=== PATIENT | male | born 1970 | race Caucasian/White ===

== ENCOUNTER 2020-01-13 21:04 | Emergency (ER) | payer BC ==
[2020-01-13 21:16] VITALS: BP 145/88; PULSE 60; RESP 18; TEMP 98
[2020-01-13] MEDS ORDERED: SODIUM CHLORIDE 0.9% 1,000 ML IV STA (21:17)
[2020-01-13] MEDS ORDERED: SODIUM CHLORIDE 0.9% 500 ML 500 ML IV STA (21:17)
[2020-01-13 21:38] LABS: Basophils # (A) 0.1 k/uL (0-0.2); Basophils % (A) 1 %; Eosinophils # (A) 0.2 k/uL (0-0.7); Eosinophils % (A) 2 %; HCT 49.4 % (39.0-53.0); HGB 16.7 gm/dL (13.0-17.5); Lymphocytes # (A) 2.3 k/uL (1.0-4.8); Lymphocytes % (A) 28 %; MCH 30.9 pg (25.0-35.0); MCHC 33.8 g/dL (31.0-37.0); MCV 91.3 fL (80.0-100.0); Mean Platelet Volume 8.9; Monocytes # (A) 0.5 k/uL (0-1.0); Monocytes % (A) 6 %; Neutrophils # (A) 4.9 k/uL (1.3-7.7); Neutrophils % (A) 60 %; Platelet Count 185 k/uL (150-450); RBC 5.41 m/uL (4.30-5.90); WBC 8.2 k/uL (3.8-10.6)
[2020-01-13 21:47] LABS: Appearance,Urine Clear (Clear); Bilirubin,Urine Negative (Negative); Blood,Urine Negative (Negative); Color,Urine Yellow; Glucose,Urine (UA) Negative (Negative); Ketones,Urine Negative (Negative); Leukocyte Esterase,Urine Negative (Negative); Nitrite,Urine Negative (Negative); Protein,Urine Negative (Negative); Specific Gravity,Urine 1.025 (1.001-1.035); Urobilinogen,Urine <2.0 mg/dL (<2.0)
[2020-01-13 21:50] LABS: Potassium 4.4 mmol/L (3.5-5.1)
[2020-01-13 21:51] LABS: ALT 34 U/L (4-49); AST 42 U/L (17-59); African American GFR (CKD) >90 (>60 ml/min/1.73 sqM); Albumin 4.3 g/dL (3.5-5.0); Alkaline Phosphatase 92 U/L (38-126); Amylase 84 U/L (30-110); Anion Gap 7 mmol/L; Blood Urea Nitrogen 20 mg/dL (9-20); Calcium 9.5 mg/dL (8.4-10.2); Carbon Dioxide 24 mmol/L (22-30); Chloride 109 mmol/L (98-107); Glucose 92 mg/dL (74-99); Non-African American GFR(CKD) >90 (>60 ml/min/1.73 sqM); Sodium 140 mmol/L (137-145); Total Bilirubin 0.5 mg/dL (0.2-1.3); Total Protein 7.1 g/dL (6.3-8.2)
--- NOTE | 2020-01-13 22:09 | CT ---
EXAMINATION TYPE: CT abdomen pelvis w con DATE OF EXAM: 01/13/2020 COMPARISON: HISTORY: Abdominal pain CT DLP: 1152.2 mGycm Automated exposure control for dose reduction was used. CONTRAST: Performed with IV Contrast, patient injected with 100 mL of Isovue 300. Lung bases show minimal subsegmental atelectasis. There is no pleural effusion. Heart size is normal. There is no pericardial effusion. There is 3 cm mass in the posterior right lobe of the liver with delayed enhancement consistent with hemangioma. Spleen appears normal. Stomach is normal. There is no pancreatic mass. Gallbladder appear s normal. The bile ducts are nondilated. There is no adrenal mass. Kidneys show satisfactory contrast opacification. There is no hydronephrosi s. Delayed images show normal renal excretion. There is no retroperitoneal adenopathy. Appendix appea rs normal. Bladder distends smoothly. There is no inguinal hernia. There is no free fluid in the pelv is. There is no evidence of pelvic mass. There is no ascites. There is no mesenteric edema. There is no sign of bowel obstruction. Lumbar vertebra have normal alignment. Posterior elements are intact. There is no compression fractur e. The bony pelvis is intact. Hip joints are intact. IMPRESSION: Normal appendix. No sign of acute abdomen and pelvis.
--- NOTE | 2020-01-13 22:24 | ED ---
Abdominal Pain HPI - General Chief Complaint: Abdominal Pain Stated Complaint: Abd Pain Time Seen by Provider: 01/13/20 21:16 Source: patient Mode of arrival: ambulatory Limitations: no limitations - History of Present Illness Initial Comments: 49-year-old male presenting today for chief complaint of right lower quadrant abdominal pain he states it began this morning. He states he has noticed somewhat increased with lifting his child. Patient denies any fevers decreased appetite. He states he has had some loose stools. He denies any vomiting. Vic huerta denies knowing this previously. She states that he felt it was present yesterday at times occasional sharp. He states this still is occasionally states that there has been no constant pain. Patient states he is comfortable currently. Pain to palpation of the right lwoer abdomen/inguinal region. - Related Data Allergies Allergy/AdvReac Type Severity Reaction Status Date / Time No Known Allergies Allergy Verified 01/13/20 21:16 Review of Systems ROS Statement: Those systems with pertinent positive or pertinent negative responses have been documented in the HPI. ROS Other: All systems not noted in ROS Statement are negative. Past Medical History Past Medical History: No Reported History History of Any Multi-Drug Resistant Organisms: None Reported Past Surgical History: Orthopedic Surgery Additional Past Surgical History / Comment(s): Right miniscus repair Past Psychological History: No Psychological Hx Reported Smoking Status: Never smoker Past Alcohol Use History: None Reported Past Drug Use History: None Reported General Exam - General Exam Comments Initial Comments: General: The patient is awake and alert, in no distress Eye: +3 mm pupils are equal, round and reactive to light, extra-ocular movements are intact. No nystagmus. There is normal conjunctiva bilaterally. No signs of icterus. Ears, nose, mouth and throat: There are moist mucous membranes and no oral lesions. Neck: The neck is supple, there is no tenderness or JVD. Cardiovascular: There is a regular rate and rhythm. No murmur, rub or gallop is appreciated. Respiratory: Lungs are clear to auscultation, respirations are non-labored, breath sounds are equal. No wheezes, stridor, rales, or rhonchi. Gastrointestinal: Soft, non-distended, non-tender abdomen without masses or organomegaly noted. There is no rebound or guarding present. : normal testicular exam, no inguinal hernia appreciated. no pain with exam. Musculoskeletal: Normal ROM, no tenderness. Strength 5/5. Sensation intact. Radial pulses equal bilaterally 2+. Neurological: A&O x 3. CN II-XII intact grossly, There are no obvious motor or sensory deficits. Coordination appears grossly intact. Speech is normal. Skin: Skin is warm and dry and no rashes or lesions are noted. Psychiatric: Cooperative, appropriate mood & affect, normal judgment. Limitations: no limitations Course Vital Signs 01/13/20 21:12 Temperature 98.0 F Pulse Rate 60 Respiratory 18 Rate Blood Pressure 145/88 O2 Sat by Pulse 96 Oximetry Medical Decision Making - Medical Decision Making Or 9-year-old male presents for right lower quadrant pain CT negative for acute process laboratory studies stable. Urinalysis unremarkable. No kidney stones no signs of appendicitis. I do suspicion given patient's pain increases with lifting that there is possible small inguinal hernia. There is nonpalpable on physical examination. Patient has no constant pain no pain currently. This time feel he stated for discharge with outpatient general surgery follow-up return parameters were discussed the patient was discharged appearing well. Dr. Pal is agreeable to car eplan and discharge at this time. - Lab Data Result diagrams: 01/13/20 21:27 01/13/20 21:27 Lab Results 01/13/20 01/13/20 01/13/20 Range/Units 21:27 21:27 21:27 WBC 8.2 (3.8-10.6) k/uL RBC 5.41 (4.30-5.90) m/uL Hgb 16.7 (13.0-17.5) gm/dL Hct 49.4 (39.0-53.0) % MCV 91.3 (80.0-100.0) fL MCH 30.9 (25.0-35.0) pg MCHC 33.8 (31.0-37.0) g/dL RDW 13.0 (11.5-15.5) % Plt Count 185 (150-450) k/uL Neutrophils % 60 % Lymphocytes % 28 % Monocytes % 6 % Eosinophils % 2 % Basophils % 1 % Neutrophils # 4.9 (1.3-7.7) k/uL Lymphocytes # 2.3 (1.0-4.8) k/uL Monocytes # 0.5 (0-1.0) k/uL Eosinophils # 0.2 (0-0.7) k/uL Basophils # 0.1 (0-0.2) k/uL Sodium 140 (137-145) mmol/L Potassium 4.4 (3.5-5.1) mmol/L Chloride 109 H (98-107) mmol/L Carbon Dioxide 24 (22-30) mmol/L Anion Gap 7 mmol/L BUN 20 (9-20) mg/dL Creatinine 0.90 (0.66-1.25) mg/dL Est GFR (CKD-EPI)AfAm >90 (>60 ml/min/1.73 sqM) Est GFR (CKD-EPI)NonAf >90 (>60 ml/min/1.73 sqM) Glucose 92 (74-99) mg/dL Calcium 9.5 (8.4-10.2) mg/dL Total Bilirubin 0.5 (0.2-1.3) mg/dL AST 42 (17-59) U/L ALT 34 (4-49) U/L Alkaline Phosphatase 92 (38-126) U/L Total Protein 7.1 (6.3-8.2) g/dL Albumin 4.3 (3.5-5.0) g/dL Amylase 84 (30-110) U/L Lipase 114 (23-300) U/L Urine Color Yellow Urine Appearance Clear (Clear) Urine pH 6.0 (5.0-8.0) Ur Specific [place] 1.025 (1.001-1.035) Urine Protein Negative (Negative) Urine Glucose (UA) Negative (Negative) Urine Ketones Negative (Negative) Urine Blood Negative (Negative) Urine Nitrite Negative (Negative) Urine Bilirubin Negative (Negative) Urine Urobilinogen <2.0 (<2.0) mg/dL Ur Leukocyte Esterase Negative (Negative) Disposition Clinical Impression: RLQ abdominal pain Disposition: HOME SELF-CARE Condition: Good Instructions (If sedation given, give patient instructions): Inguinal Hernia (ED) Additional Instructions: Please use medication as discussed. Please follow-up with family doctor in the next 2 days, recommend general surgery consult. Please return to emergency room if the symptoms increase or worsen or for any other concerns. Is patient prescribed a controlled substance at d/c from ED?: No Referrals: Austin Mai MD [Primary Care Provider] - 1-2 days Walter Milligan MD [Medical Doctor] - 1-2 days Time of Disposition: 22:24
== END 2020-01-13 22:30 | disposition home or self-care (01) ==
LOC: EC 21:04
DX: R10.31 Right lower quadrant pain (principal)
CPT/HCPCS: 36415; 80053; 82150; 83690; 85025; 81003; 74177; 99284; 96360; Q9967

== ENCOUNTER 2020-06-11 07:05 | Day surgery (SDC) | payer BC ==
[2020-06-10 08:20] VITALS: BMI 26.4
[~2020-06-11 07:05] MED LIST: LACTATED RINGERS 1,000 ML IV SCH; LIDOCAINE 1% (10MG/ML) FOR IV START INTRADERMA PRN
[2020-06-11] MEDS ORDERED: PROPOFOL 10 MG/ML 20 ML VIAL IV ONE (09:01)
--- NOTE | 2020-06-11 09:15 | P.PCN ---
Date of Procedure: 06/11/20 Procedure(s) Performed: BRIEF HISTORY: Patient is a 50-year-old pleasant white male scheduled for an elective colonoscopy as a part of evaluation of intermittent right lower quadrant abdominal pain and altered bowel movements for the last few months duration. PROCEDURE PERFORMED: Colonoscopy. PREOPERATIVE DIAGNOSIS: Intermittent lower abdominal pain and change in bowel habits. IV sedation per Anesthesia. PROCEDURE: After informed consent was obtained, the patient, was brought into the endoscopy unit. IV sedation was administered by Anesthesia under continuous monitoring. Digital rectal examination was normal. Initially the Olympus CF-160 flexible video colonoscope was then inserted in the rectum, gradually advanced into the cecum without any difficulty. Careful examination was performed as the scope was gradually being withdrawn. Ileocecal valve and the appendiceal orifice were visualized and appeared normal. Prep was excellent. Mucosa of the cecum, ascending colon, transverse colon, descending colon, sigmoid colon, and rectum appeared normal. Retroflexion was performed in the rectum and no lesions were seen. The patient tolerated the procedure well. IMPRESSION: Normal-appearing colon from rectum to cecum no evidence of colitis or colorectal neoplasia. RECOMMENDATIONS: Findings of this examination were discussed with the patient as well as his family. He was advised to be a high-fiber diet and take fiber supplements a regular basis. He can have a repeat screening colonoscopy in 10 years . years.
[2020-06-11 09:37] VITALS: RESP 16
[2020-06-11 09:38] VITALS: BP 108/64; PULSE 56
== END 2020-06-11 10:09 | disposition home or self-care (01) ==
LOC: ORWHC2ENDO 07:05
PROVIDERS: ATTEND Internal Medicine Gastroenterology
DX: R19.4 Change in bowel habit (principal); R10.30 Lower abdominal pain, unspecified
CPT/HCPCS: 45378; J2704